=== PATIENT | female | born 2005 | race Caucasian/White ===

== ENCOUNTER 2023-12-03 15:48 | Emergency (ER) | payer OTHER ==
[~2023-12-03] VITALS: Ht 165.1 cm; Wt 67.5 kg
[2023-12-03 16:34] LABS: URINE HCG NEGATIVE (NEG)
[2023-12-03 16:39] LABS: BILIRUBIN,URINE SMALL (Neg); CLARITY,URINE CLEAR (Clear); COLOR,URINE YELLOW (Yellow); GLUCOSE, URINE NEGATIVE (Neg); KETONES,URINE NEGATIVE (Neg); LEUKOCYTE ESTERASE ,URINE NEGATIVE (Neg); NITRITES, URINE NEGATIVE (Neg); OCCULT BLOOD,URINE SMALL (Neg); PH,URINE 5.5 (4.8-8.0); PROTEIN,URINE NEGATIVE (Neg); UROBILINOGEN,URINE 0.2 E.U/dL (0.2-1.0)
[2023-12-03 16:48] LABS: BASOPHILS % (AUTO) 0.4 % (0-1); EOSINOPHILS # (AUTO) 0.1 X10'3 (0-0.9); EOSINOPHILS % (AUTO) 1.2 % (0-6); HEMATOCRIT 33.5 % (35.0-45.0); HEMOGLOBIN 11.1 g/dl (12.0-16.0); LYMPHOCYTES # (AUTO) 2.1 X10'3 (1.1-4.8); LYMPHOCYTES % (AUTO) 26.4 % (21-51); MEAN CORPUSCULAR HEMOGLOBIN 26.3 PG (27.0-31.0); MEAN CORPUSCULAR HGB CONC 33.3 g/dL (33.0-36.5); MEAN CORPUSCULAR VOLUME 79.1 FL (78-98); MEAN PLATELET VOLUME 8.7 FL (7.4-10.4); MONOCYTES # (AUTO) 0.4 X10'3 (0-0.9); MONOCYTES % (AUTO) 4.8 % (2-12); NEUTROPHILS # (AUTO) 5.3 X10'3 (1.8-7.7); NEUTROPHILS % (AUTO) 67.2 % (42-75); PLATELET COUNT 245 X10'3 (140-440); RED BLOOD COUNT 4.23 X10'6 (4.20-5.60); WHITE BLOOD COUNT 7.9 X10'3 (4.5-11.0)
[2023-12-03 16:51] LABS: URINE AMPHETAMINE SCREEN NEGATIVE (Neg); URINE BARBITUATE SCREEN NEGATIVE (Neg); URINE BENZODIAZEPINES SCREEN NEGATIVE (Neg); URINE CANNABINOID SCREEN POSITIVE (Neg); URINE COCAINE SCREEN NEGATIVE (Neg); URINE METHADONE SCREEN NEGATIVE (Neg); URINE OPIATE SCREEN NEGATIVE (Neg); URINE PHENCYCLIDINE SCREEN NEGATIVE (Neg)
[2023-12-03 17:10] LABS: ALBUMIN 3.8 G/DL (3.4-5.0); ANION GAP 6 (8-16); BLOOD UREA NITROGEN 21 MG/DL (7-18); BUN/CREATININE RATIO 24.4 (10.0-20.0); CALCIUM 8.7 MG/DL (8.5-10.1); CHLORIDE 102 MMOL/L (99-107); CREATININE 0.86 MG/DL (0.40-0.90); ETHANOL < 10 MG/DL (<10); GLUCOSE 117 MG/DL (70-104); POTASSIUM 3.8 MMOL/L (3.5-5.1); SODIUM 136 MMOL/L (135-145); THYROID STIMULATING HORMONE 0.14 ulU/ml (0.34-4.50); TOTAL CARBON DIOXIDE 28.1 MMOL/L (24-32); eCRCL 94 ML/MIN; eGFR 84 ML/MIN
[2023-12-03 17:13] LABS: UA COLLECTION TYPE NON-SPECIFIED
[2023-12-03 17:14] LABS: BACTERIA,URINE FEW /HPF (Neg); MUCUS STRANDS MANY /LPF (Neg); SQUAMOUS EPITHELIAL CELL,UR MANY /LPF (FEW); WBC,URINE 0-4 /HPF (0-4)
[2023-12-03] MEDS ORDERED: RIFA300C65 PO (20:29)
[2023-12-03] MEDS ORDERED: LAMO100T2 PO (20:32)
[2023-12-03] MEDS ORDERED: ARIP10TA14 PO (20:34)
[2023-12-03] MEDS ORDERED: NALT50TA5 PO (20:36)
[2023-12-03] MEDS ORDERED: TRAZ-251 PO (20:41)
[2023-12-03] MEDS ORDERED: TOBR5DRO12 LEFTEYE (20:49)
[2023-12-03] MEDS ORDERED: ONDA-243 PO (20:57)
[2023-12-03] MEDS: tobramycin 0.3% 5ml ophthalmic drops LEFTEYE SCH (23:01)
[2023-12-03] MEDS: rifampin 300mg capsule PO SCH (23:01)
[2023-12-03] MEDS: traZODone 50mg tablet PO PRN (23:02)
[2023-12-04] MEDS ORDERED: naltrexone 50mg tablet PO SCH (08:00)
[2023-12-04] MEDS: aripiprazole 10MG tablet PO SCH (08:38)
[2023-12-04] MEDS: lamoTRIgine 100mg tablet PO SCH (08:38)
[2023-12-04] MEDS: naltrexone 50mg tablet PO SCH (08:39)
[2023-12-04 21:52] VITALS: BP 123/78; PULSE 78; RESP 16; TEMP 98.3; O2SAT 100
== END 2023-12-04 22:21 ==
LOC: ER 15:49
DX: R45.851 Suicidal ideations (principal); F32.A Depression, unspecified; Z20.822 Contact with and (suspected) exposure to COVID-19
CPT/HCPCS: 36415; 80048; 80305; 80320; 81001; 81025; 84443; 85025; 87811; 99284; 99285